=== PATIENT | male | born 1975 | race African-American/Black ===

== ENCOUNTER 2018-12-22 01:47 | Emergency (ER) | payer OTHER ==
[~2018-12-22] VITALS: Ht 175.3 cm; Wt 81.7 kg
[2018-12-22 01:53] VITALS: BP 144/81
[2018-12-22] MEDS ORDERED: KEFLEX500 M1 PO (04:56)
== END 2018-12-22 05:04 | disposition home or self-care (01) ==
LOC: M.ERS 01:47
DX: S01.21XA Laceration without foreign body of nose, initial encounter (principal); S01.112A Laceration without foreign body of left eyelid and periocular area, initial encounter; Z88.0 Allergy status to penicillin; Y08.89XA Assault by other specified means, initial encounter; Y93.89 Activity, other specified; Y92.89 Other specified places as the place of occurrence of the external cause; Y99.8 Other external cause status

== ENCOUNTER 2019-01-08 11:12 | Emergency (ER) | payer OTHER ==
[~2019-01-08] VITALS: Ht 175.3 cm; Wt 83.9 kg
[~2019-01-08 11:12] MED LIST: KEFLEX500 M1 PO
[2019-01-08 12:16] LABS: HEMATOCRIT 42.3 % (42.0-52.0); HEMOGLOBIN 14.6 gm/dL (14.0-18.0); MCH 33.4 pg (26.0-34.0); MCHC 34.6 g/dL (28.0-37.0); MCV 96.5 fL (80.0-100.0); MPV 8.8 fl. (7.2-11.1); NUCLEATED RBCS 0 /100WBC; PLATELET COUNT* 147 thou/uL (150-400); RBC 4.39 mil/uL (4.50-6.00); RDW-CV 15.2 % (10.5-14.5); WBC 14.7 thou/uL (4.0-11.0)
[2019-01-08 12:34] LABS: URINE BILIRUBIN NEGATIVE (Negative); URINE BLOOD 1+ (Negative); URINE CLARITY CLEAR; URINE COLOR YELLOW; URINE GLUCOSE-RANDOM NEGATIVE (Negative); URINE KETONES TRACE (Negative); URINE LEUKOCYTES-REFLEX NEGATIVE (Negative); URINE NITRITE-REFLEX NEGATIVE (Negative); URINE PROTEIN 1+ (Negative); URINE UROBILINOGEN 0.2 E.U./dl (0.2-1.0)
[2019-01-08 12:37] LABS: ABSOLUTE LYMPHOCYTES 0.3 thou/uL (0.8-5.3); ABSOLUTE MONOCYTES 1.3 thou/uL (0.0-1.2); ABSOLUTE NEUTROPHILS 13.1 thou/uL (1.6-8.1); ANISOCYTOSIS 1+; PLATELET ESTIMATE DECREASED; POIKILOCYTOSIS 1+
[2019-01-08 12:45] LABS: BACTERIA-REFLEX 1-9 Few /HPF (None Seen); CASTS None Seen /LPF (None Seen); CRYSTALS None Seen /LPF (None Seen); MUCUS 0-3 Light strn/LPF (None Seen); SQUAMOUS 0-3 Few /LPF (0-3); URINE RBC 3-10 Few /HPF (0-2); URINE WBC-REFLEX 0-5 Rare /HPF (0-5)
[2019-01-08 12:46] LABS: ALBUMIN 3.3 g/dL (3.4-5.0); ALKALINE PHOSPHATASE 71 U/L (46-116); ANION GAP 14 mmol/L (7-16); BUN 7 mg/dL (7-18); CALCIUM 8.9 mg/dL (8.5-10.1); CHLORIDE 97 mmol/L (98-107); CO2 24 mmol/L (21-32); CREATININE 1.3 mg/dL (0.6-1.3); GLUCOSE 111 mg/dL (70-99); LIPASE 96 U/L (73-393); MAGNESIUM 1.2 mg/dL (1.8-2.4); POTASSIUM 3.3 mmol/L (3.5-5.1); SGOT 59 U/L (15-37); SGPT 43 U/L (30-65); SODIUM 135 mmol/L (136-145); TOTAL BILIRUBIN 0.4 mg/dL (<0.1-1.0); TOTAL PROTEIN 8.1 g/dL (6.4-8.2); TROPONIN-I LEVEL <0.06 ng/mL (<0.06)
[2019-01-08 13:19] LABS: AMP/METHAMP Negative (Negative); BARBITURATES Negative (Negative); BENZODIAZEPINES Negative (Negative); COCAINE Negative (Negative); METHADONE Negative (Negative); OPIATES Negative (Negative); PCP Negative (Negative); THC Negative (Negative)
[2019-01-08 13:33] LABS: INFLUENZA A ANTIGEN None Detected (None Detect); INFLUENZA B ANTIGEN None Detected (None Detect)
[2019-01-08] MEDS ORDERED: IBUPROFEN 800800 M1 PO (15:14)
[2019-01-08] MEDS ORDERED: CENTANY30 GM TOP (15:16)
[2019-01-08] MEDS ORDERED: ACETAMINOPHEN-1 EAC1 PO (15:16)
[2019-01-08] MEDS ORDERED: KEFLEX500 M1 PO (15:16)
[2019-01-08 15:28] VITALS: BP 109/67
--- NOTE | 2019-01-09 10:04 | EKG ---
[place] [address] ELECTROCARDIOGRAM REPORT Name: EDDIE GUZMAN Room: [facility]#: [id number] Admission: 01/08/19 Attend Phys: Discharge: 01/08/19 Date of : 77 Report #: [id number] THIS REPORT FOR: //name// [facility] ED Test Date: 2019-01-08 Test Time: 11:53:45 Pat Name: EDDIE GUZMAN Department: Room: Gender: M Banking Supervisor: : 1975 Requested By: Reshma Christine Order Number: [id number] MD: Simón Montes Measurements Intervals Gary Rate: 126 P: 76 OH: 141 QRS: 81 QRSD: 84 T: -57 QT: 262 QTc: 380 Interpretive Statements Sinus tachycardia Probable left atrial enlargement Probable left ventricular hypertrophy Abnormal T, consider ischemia, diffuse leads Anterior ST elevation, probably due to LVH No previous ECG available for comparison Electronically Signed On 01-09-2019 10:03:59 CDT by Simón Montes [email or web address] <ELECTRONICALLY SIGNED> By: Simón Montes MD, FAC 01/09/19 1003 [id number] Simón Montes MD, [facility] /EPI
== END 2019-01-08 15:28 | disposition home or self-care (01) ==
LOC: M.ERS 11:12
PROVIDERS: Nurse Practitioner Family
DX: E83.42 Hypomagnesemia (principal); J02.0 Streptococcal pharyngitis; R19.7 Diarrhea, unspecified; R07.89 Other chest pain; L01.00 Impetigo, unspecified; M79.662 Pain in left lower leg; Z88.0 Allergy status to penicillin; Z79.899 Other long term (current) drug therapy